=== PATIENT | female | born 1950 | race Caucasian/White ===

== ENCOUNTER 2017-01-14 12:29 | Emergency (ER) | payer OTHER ==
[2017-01-14 12:39] VITALS: RESP 16; O2SAT 97
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
[2017-01-14 15:05] VITALS: BP 128/81; PULSE 69; TEMP 98.1
== END 2017-01-14 15:02 | disposition home or self-care (01) ==
PROC: 0PSHXZZ Reposition Right Radius, External Approach (ICD-10-PCS; principal; 2017-01-14)
DX: S52.572A Other intraarticular fracture of lower end of left radius, initial encounter for closed fracture (principal); V18.2XXA Unspecified pedal cyclist injured in noncollision transport accident in nontraffic accident, initial encounter; Y92.830 Public park as the place of occurrence of the external cause; Y99.8 Other external cause status; Y93.89 Activity, other specified; G20 Parkinson's disease

== ENCOUNTER 2017-02-23 15:50 | Emergency (ER) | payer OTHER ==
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
[2017-02-23 16:16] VITALS: RESP 16; TEMP 98.2
--- NOTE | 2017-02-23 17:11 | CPEKG ---
Heart Rate: 81 RR Interval: 741 P-R Interval: 152 QRSD Interval: 84 QT Interval: 404 QTC Interval: 469 P Eden: 2 QRS Eden: 84 T Wave Eden: 53 EKG Severity - OTHERWISE NORMAL ECG - EKG Impression: SINUS RHYTHM EKG Impression: BORDERLINE RIGHT AXIS DEVIATION Electronically Signed By: Maury Lawson 24-Feb-2017 08:13:19
[2017-02-23 17:26] LABS: % IMMATURE GRANULYOCYTES 0.2 % (0.0-1.1); ABSOLUTE IMMATURE GRANULOCYTES 0.01 10^3/uL (0.00-0.10); ADD DIFF? NO; ADD MORPH? NO; ADD SCAN? NO; ATYPICAL LYMPHOCYTE FLAG 10 (0-99); FRAGMENT RBC FLAG 0 (0-99); HEMATOCRIT 38.3 % (38.0-47.0); HEMOGLOBIN 12.4 g/dL (12.6-16.3); LEFT SHIFT FLG 0 (0-99); LIPEMIA HEMOLYSIS FLAG 80 (0-99); MEAN CELL HEMOGLOBIN 29.3 pg (27.9-34.1); MEAN CELL HEMOGLOBIN CONCENTR. 32.4 g/dL (32.4-36.7); MEAN CELL VOLUME 90.5 fL (81.5-99.8); MEAN PLATELET VOLUME 9.2 fL (8.7-11.7); PLATELET CLUMPS FLAG 10 (0-99); PLATELET COUNT 211 10^3/uL (150-400); RED BLOOD CELL COUNT 4.23 10^6/uL (4.18-5.33); RED CELL DISTRIBUTION WIDTH 13.3 % (11.5-15.2)
[2017-02-23 17:41] LABS: ANION GAP 11 mEq/L (8-16); CALCIUM 9.8 mg/dL (8.5-10.4); CARBON DIOXIDE 26 mEq/l (22-31); CHLORIDE 103 mEq/L (97-110); CREATININE 0.8 mg/dL (0.6-1.0); GLOMERULAR FILTRATION RATE > 60; GLUCOSE 96 mg/dL (70-100); POTASSIUM 3.8 mEq/L (3.5-5.2); SODIUM 140 mEq/L (134-144)
[2017-02-23 17:51] LABS: TROPONIN I < 0.012 ng/mL (0.000-0.034)
[2017-02-23 19:07] VITALS: BP 158/94; PULSE 78; O2SAT 98
== END 2017-02-23 19:07 | disposition home or self-care (01) ==
LOC: EDUNIT#
DX: S20.212A Contusion of left front wall of thorax, initial encounter (principal); R55 Syncope and collapse; G20 Parkinson's disease; I10 Essential (primary) hypertension; V49.40XA Driver injured in collision with unspecified motor vehicles in traffic accident, initial encounter; Y92.410 Unspecified street and highway as the place of occurrence of the external cause; Y99.8 Other external cause status